=== PATIENT | female | born 1940 | race Caucasian/White ===

== ENCOUNTER 2018-08-09 08:24 | Emergency (ER) | END 2018-08-09 12:00 | disposition home or self-care (01) ==

== ENCOUNTER 2018-08-11 11:04 | Emergency (ER) | END 2018-08-11 13:57 | disposition home or self-care (01) ==

== ENCOUNTER 2019-02-17 18:38 | Emergency (ER) | payer OTHER ==
[~2019-02-17] VITALS: Ht 175.3 cm; Wt 83.6 kg
[~2019-02-17 18:38] MED LIST: CEPH-443 PO; IBUP-1561 PO
[2019-02-17 18:55] VITALS: Ht 175.3 cm; Wt 83.6 kg
--- NOTE | 2019-02-17 20:37 | ERD ---
ER Documentation Chief Complaint Chief Complaint L KNEE PAIN S/P GROUND LEVEL FALL HPI 78-year-old female, presents the emergency department, complaining of left knee pain after a mechanical ground-level fall that occurred today at approximately 4 PM. The pain is dull, constant, 7/10. The patient is able to ambulate with her walker. She denies distal weakness, numbness or tingling. ROS All systems reviewed and are negative except as per history of present illness. Medications Home Meds Active Scripts Lidocaine (Aspercreme) 1 Each Adh..patch, 1 EACH TP TID for 5 Days, #10 UNIT Prov:YING HSIEH MD 02/17/19 Acetaminophen* (Tylenol*) 325 Mg Tablet, 2 TAB PO Q6 PRN for PAIN AND OR ELEVATED TEMP, #20 TAB Prov:YING HSIEH MD 02/17/19 Ibuprofen* (Motrin*) 400 Mg Tab, 400 MG PO Q6, #30 TAB Prov:ARON CAMARGO 08/09/18 Cephalexin* (Keflex*) 500 Mg Capsule, 500 MG PO BID for 7 Days, CAP Prov:ARON CAMARGO 08/09/18 Allergies Allergies: Coded Allergies: No Known Allergy (Unverified , 02/17/19) PMhx/Soc History of Surgery: Yes (left leg/knee, left arm) Anesthesia Reaction: No Hx Neurological Disorder: Yes (short term memory) Hx Respiratory Disorders: No Hx Cardiac Disorders: No Hx Psychiatric Problems: No Hx Miscellaneous Medical Probl: Yes (GERD, ) Hx Alcohol Use: No Hx Substance Use: No Hx Tobacco Use: No Smoking Status: Never smoker FmHx Family History: diabetes Physical Exam Vitals Vital Signs Date Temp Pulse Resp B/P (MAP) Pulse Ox O2 O2 Flow FiO2 Time Delivery Rate 02/17/19 98.3 72 16 133/81 95 Room Air 22:02 (98) 02/17/19 98.7 98 18 148/88 95 18:55 (108) Physical Exam Const: No acute distress Head: Atraumatic Eyes: Normal Conjunctiva ENT: Normal External Ears, Nose and Mouth. Neck: Full range of motion. No meningismus. Resp: Clear to auscultation bilaterally Cardio: Regular rate and rhythm, no murmurs Abd: Soft, non tender, non distended. Normal bowel sounds Skin: No petechiae or rashes Back: No midline or flank tenderness Ext: No cyanosis, or edema. Left knee: Noninfected abrasion, full passive range of motion, distal neurovascular exam intact. Neur: Awake and alert Psych: Normal Mood and Affect Results 24 hrs DIAGNOSTIC IMAGING REPORT Patient: ALBARO BROWN : 1940 Age: 78 Sex: F MR #: [id number] DOS: 02/17/192056 Ordering MD: YING HSIEH MD Location: [facility] Room/Bed: PROCEDURE: Left knee x-ray CLINICAL INDICATION: Status post fall TECHNIQUE: AP and lateral as well as AP, views of the left knee were obtained. COMPARISON: None FINDINGS: Mineralization is intact. Post-traumatic deformity of proximal fibula. Partially imaged left tibia intramedullary genevieve and screw fixation and post deformity of the proximal tibia. No definite acute fracture identified. Marginal osteophyte formation in the medial tibio-femoral compartment without definite cartilage space narrowing on these nonweight bearing images. Patellofemoral marginal osteophyte formation and possible mild cartilage space narrowing. Superior patellar enthesophyte. No significant joint effusion. Prepatellar soft tissue fullness. IMPRESSION: 1. Prepatellar soft tissue fullness. 2. Post-traumatic deformity of the proximal tibia and fibula status post fixation of the tibia as above. 3. No displaced acute fracture identified. CT may be obtained if clinically indicated. RPTAT: [facility] Physician Catie Date Time Electronically viewed and signed by Physician Catie on 02/17/2019 22:18 Procedures/MDM Acute left kneepain: no red flags. Differential diagnosis include but not limited to: Knee contusion, meniscus injury, tendon/ligament injury, arthritis; low suspicion for fracture, dislocation, septic arthritis. Neurovascular exam grossly intact. no clinical findings suggestive of acute infectious process, no acute deformity, no edema, no rashes. Pertinent Data: X-rays: No fracture or dislocation Physical examination and clinical presentation consistent most likely with acute knee contusion. Results and clinical impression discussed with the patient who agrees with management. The patient is stable to be treated outpatient and will be discharged home with recommendations for ice, rest and partial immobilization. Acetaminophen 3 times daily for 5 days and close monitoring. The patient was instructed to follow up with the primary care provider in the next 48h. If symptoms persist, worsen or new symptoms develop, then patient should return to the ED immediately. Instructions explained and given to patient with acknowledgment and demonstrated understanding. Disclaimer: Inadvertent spelling and grammatical errors are likely due to EHR/dictation software use and do not reflect on the overall quality of patient care. Also, please note that the electronic time recorded on this note does not necessarily reflect the actual time of the patient encounter. Departure Diagnosis: Primary Impression: Contusion of left knee Condition: Stable Additional Instructions: Thank you very much for allowing us to participate in your care. Your health and safety is our top priority at [facility]. Call your primary care doctor TOMORROW for an appointment during the next 2-4 days and bring all the information and medications prescribed. Have prescriptions filled and follow precisely the directions on the label. If the symptoms get worse and your provider is unavailable, return to the Emergency Department immediately. YING HSIEH MD Feb 17, 2019 20:37
[2019-02-17] MEDS ORDERED: ACET325T33 PO (21:08)
[2019-02-17] MEDS ORDERED: LIDO1ADH41 TP (21:10)
[2019-02-17 22:02] VITALS: BP 133/81; PULSE 72; RESP 16
== END 2019-02-17 22:04 | disposition home or self-care (01) ==
LOC: FTE 18:38
DX: S80.02XA Contusion of left knee, initial encounter (principal); W18.30XA Fall on same level, unspecified, initial encounter; Y92.9 Unspecified place or not applicable
CPT/HCPCS: 73562